=== PATIENT | male | born 1975 | race Caucasian/White ===

== ENCOUNTER → 2025-01-19 09:43 | Outpatient (REF) | payer BC, SELFPAY | LOC: HWRAD 09:43 | PROVIDERS: ATTENDING PHYSICIAN Podiatrist Foot & Ankle Surgery; FAMILY PHYSICIAN Family Medicine | DX: M14.672 Charcot's joint, left ankle and foot (principal) | CPT/HCPCS: 73630 ==

== ENCOUNTER → 2025-01-29 08:57 | Outpatient (REF) | payer SELFPAY | LOC: HWRAD 08:57 | PROVIDERS: ATTENDING PHYSICIAN Family Medicine | DX: E11.40 Type 2 diabetes mellitus with diabetic neuropathy, unspecified (principal) | CPT/HCPCS: 75571 ==

== ENCOUNTER → 2025-06-27 12:07 | Outpatient (REF) | payer BC, SELFPAY | LOC: HWRAD 12:07 | PROVIDERS: ATTENDING PHYSICIAN Podiatrist Foot & Ankle Surgery; FAMILY PHYSICIAN Family Medicine | DX: M14.672 Charcot's joint, left ankle and foot (principal) | CPT/HCPCS: 73630 ==